=== PATIENT | male | born 1960 | race Caucasian/White ===

== ENCOUNTER 2019-05-01 16:52 | Inpatient (IN) | payer OTHER, MEDICAID ==
[~2019-05-01] VITALS: Ht 188 cm; Wt 86.4 kg
[2019-05-01] MEDS ORDERED: ZOLPIDEM TARTRATE 10 MG TABLET PO PRN (20:00)
[2019-05-01] MEDS ORDERED: HALOPERIDOL 5 MG TABLET PO PRN (20:00)
[2019-05-01] MEDS ORDERED: LORazepam 2 MG TABLET PO PRN (20:00)
[2019-05-01 20:33] VITALS: BP 126/75
[2019-05-01] MEDS ORDERED: ATORVASTATIN CALCIUM 20 MG TABLET PO SCH (21:00)
[2019-05-01] MEDS ORDERED: INFLUENZA VIRUS VACCINE QVS 2019-20 (3YR+)/PF 60 MCG/0.5 ML SYRINGE IM ONE (23:45)
[2019-05-02 06:41] LABS: BASOPHILS % (AUTO) 0.6 % (0.0-2.0); EOSINOPHILS % (AUTO) 4.9 % (1.0-6.0); HEMATOCRIT 44.3 % (41-53); HEMOGLOBIN 14.7 g/dL (13.5-17.5); LYMPHOCYTES % (AUTO) 39.2 % (22.0-44.0); MEAN CORPUSCULAR HEMOGLOBIN 29.1 pg (26.0-34.0); MEAN CORPUSCULAR HGB CONC 33.3 G/dL (31.0-37.0); MEAN CORPUSCULAR VOLUME 87 fL (80-100); MONOCYTES # (AUTO) 0.4 K/uL (0.1-1.0); MONOCYTES % (AUTO) 7.8 % (2.0-9.0); NEUTROPHILS # (AUTO) 2.4 K/uL (1.8-7.7); NEUTROPHILS % (AUTO) 47.5 % (40.0-70.0); PLATELET COUNT (AUTO) 169 K/uL (150-450); RED BLOOD CELL COUNT(AUTO) 5.07 MIL/uL (4.50-5.90); RED CELL DISTRIBUTION WIDTH 14.4 % (11.5-14.5)
[2019-05-02 07:00] LABS: ALANINE AMINOTRANSFERASE 11 U/L (12-78); ALBUMIN 3.5 g/dL (3.4-5.0); ALKALINE PHOSPHATASE 90 U/L (46-116); ANION GAP 6 mmol/L (8-16); ASPARTATE AMINOTRANSFERASE 10 U/L (15-37); BILIRUBIN,TOTAL 0.5 mg/dL (0.1-1.0); CARBON DIOXIDE 30 mmol/L (22-29); CHLORIDE 102 mmol/L (98-107); CHOL/HDL RATIO 4.8 (4.2-7.3); CHOLESTEROL 168 mg/dL (131-200); CREATININE 0.97 mg/dL (0.60-1.30); GLOMERULAR FILTR. RATE CALC > 60 mL/min (>60); GLUCOSE,RANDOM 86 mg/dL (70-110); HDL CHOLESTEROL 35 mg/dL (40-60); LDL CHOL (CALC.) 113 mg/dL (0-130); POTASSIUM 4.4 mmol/L (3.5-5.1); SODIUM SERUM 138 mmol/L (136-145); TOTAL PROTEIN, SERUM 7.4 g/dL (6.4-8.2); TRIGLYCERIDES 102 mg/dL (15-150); UREA NITROGEN, BLOOD 30 mg/dL (7-18)
[2019-05-02 07:04] LABS: HEMOGLOBIN A1C 4.9 % (4.5-6.2)
[2019-05-02 07:40] LABS: AMPHET/METH SCREEN,URINE NEGATIVE (NEGATIVE); BARBITURATE SCREEN, URINE NEGATIVE (NEGATIVE); BENZODIAZEPINES SCREEN,URINE NEGATIVE (NEGATIVE); CANNABINOID SCREEN,URINE NEGATIVE (NEGATIVE); COCAINE SCREEN,URINE NEGATIVE (NEGATIVE); METHADONE SCREEN, URINE NEGATIVE (NEGATIVE); OPIATE SCREEN,URINE NEGATIVE (NEGATIVE)
[2019-05-02 07:47] LABS: APPEARANCE,URINE CLEAR (CLEAR); GLUCOSE, URINE (UA) NEGATIVE (NEGATIVE); KETONES,URINE NEGATIVE (NEGATIVE); LEUKOCYTE ESTERASE ,URINE NEGATIVE (NEGATIVE); NITRATE,URINE NEGATIVE (NEGATIVE); OCCULT BLOOD,URINE NEGATIVE (NEGATIVE); PH,URINE 5.5 (5.0-8.0); PROTEIN,URINE NEGATIVE (NEGATIVE)
[2019-05-02 07:48] LABS: PHENCYCLIDINE SCREEN,URINE NEGATIVE (NEGATIVE)
[2019-05-02 07:49] LABS: BILIRUBIN,URINE PRELIM. POSITIVE (NEGATIVE)
[2019-05-02 08:16] VITALS: BP 143/89
[2019-05-02] MEDS: ASPIRIN 81 MG EC TABLET PO SCH (09:17)
[2019-05-02] MEDS: FLUoxetine HCL 20 MG CAPSULE PO SCH (12:37)
[2019-05-02 17:12] VITALS: BP 122/91
[2019-05-02] MEDS: OLANZapine 10 MG TABLET PO SCH (21:11)
[2019-05-02] MEDS: ATORVASTATIN CALCIUM 20 MG TABLET PO SCH (21:12)
[2019-05-03 05:53] VITALS: BP 124/82
[2019-05-03 08:33] VITALS: BP 113/75
[2019-05-03] MEDS: ASPIRIN 81 MG EC TABLET PO SCH (08:36)
[2019-05-03] MEDS: FLUoxetine HCL 20 MG CAPSULE PO SCH (08:36)
[2019-05-03 17:34] VITALS: BP 115/68
[2019-05-03] MEDS: OLANZapine 10 MG TABLET PO SCH (20:42)
[2019-05-03] MEDS: ATORVASTATIN CALCIUM 20 MG TABLET PO SCH (20:42)
== END 2019-05-03 21:10 | disposition short-term general hospital (02) | DRG 885 ==
LOC: EMS 16:55 → 3EX 18:46
PROC: 3E0234Z Introduction of Serum, Toxoid and Vaccine into Muscle, Percutaneous Approach (ICD-10-PCS; principal; 2019-05-01)
DX: F31.4 Bipolar disorder, current episode depressed, severe, without psychotic features (principal); R45.851 Suicidal ideations; E78.5 Hyperlipidemia, unspecified; F10.10 Alcohol abuse, uncomplicated; Y90.9 Presence of alcohol in blood, level not specified; F14.90 Cocaine use, unspecified, uncomplicated; G89.29 Other chronic pain; M54.9 Dorsalgia, unspecified; I11.0 Hypertensive heart disease with heart failure; I50.9 Heart failure, unspecified; Z59.0 Homelessness; Z86.73 Personal history of transient ischemic attack (TIA), and cerebral infarction without residual deficits; Z87.891 Personal history of nicotine dependence; Z91.5 Personal history of self-harm; Z98.1 Arthrodesis status; Z23 Encounter for immunization
CPT/HCPCS: 83036; 87081; G0378

== ENCOUNTER 2019-07-22 11:50 | Inpatient (IN) | payer OTHER, MEDICAID ==
[~2019-07-22] VITALS: Ht 185.4 cm; Wt 93.2 kg
[2019-07-22 15:25] LABS: ANION GAP 11 mmol/L (8-16); BASOPHILS % (AUTO) 0.7 % (0.0-2.0); CALCIUM, TOTAL 9.7 mg/dL (8.8-10.5); CARBON DIOXIDE 28 mmol/L (22-29); CHLORIDE 100 mmol/L (98-107); CREATININE 1.21 mg/dL (0.60-1.30); EOSINOPHILS % (AUTO) 1.3 % (1.0-6.0); GLOMERULAR FILTR. RATE CALC > 60 mL/min (>60); GLUCOSE,RANDOM 89 mg/dL (70-110); HEMATOCRIT 45.9 % (41-53); HEMOGLOBIN 15.4 g/dL (13.5-17.5); LYMPHOCYTES # (AUTO) 1.9 K/uL (1.0-4.8); LYMPHOCYTES % (AUTO) 19.7 % (22.0-44.0); MEAN CORPUSCULAR HEMOGLOBIN 29.9 pg (26.0-34.0); MEAN CORPUSCULAR HGB CONC 33.6 G/dL (31.0-37.0); MEAN CORPUSCULAR VOLUME 89 fL (80-100); MONOCYTES # (AUTO) 0.6 K/uL (0.1-1.0); MONOCYTES % (AUTO) 6.5 % (2.0-9.0); NEUTROPHILS % (AUTO) 71.8 % (40.0-70.0); PLATELET COUNT (AUTO) 271 K/uL (150-450); POTASSIUM 3.9 mmol/L (3.5-5.1); RED BLOOD CELL COUNT(AUTO) 5.17 MIL/uL (4.50-5.90); RED CELL DISTRIBUTION WIDTH 14.5 % (11.5-14.5); SODIUM SERUM 139 mmol/L (136-145); UREA NITROGEN, BLOOD 27 mg/dL (7-18)
[2019-07-22 15:33] LABS: ALANINE AMINOTRANSFERASE 16 U/L (12-78); ALBUMIN 4.5 g/dL (3.4-5.0); ALKALINE PHOSPHATASE 130 U/L (46-116); ASPARTATE AMINOTRANSFERASE 15 U/L (15-37); BILIRUBIN,TOTAL 0.6 mg/dL (0.1-1.0); TOTAL PROTEIN, SERUM 8.8 g/dL (6.4-8.2)
[2019-07-22 16:02] LABS: AMPHET/METH SCREEN,URINE NEGATIVE (NEGATIVE); BARBITURATE SCREEN, URINE NEGATIVE (NEGATIVE); BENZODIAZEPINES SCREEN,URINE NEGATIVE (NEGATIVE); CANNABINOID SCREEN,URINE NEGATIVE (NEGATIVE); COCAINE SCREEN,URINE NEGATIVE (NEGATIVE); METHADONE SCREEN, URINE NEGATIVE (NEGATIVE); OPIATE SCREEN,URINE NEGATIVE (NEGATIVE)
[2019-07-22 16:03] LABS: PHENCYCLIDINE SCREEN,URINE NEGATIVE (NEGATIVE)
[2019-07-22] MEDS ORDERED: HALOPERIDOL 5 MG TABLET PO PRN (17:30)
[2019-07-22] MEDS ORDERED: GuaiFENesin/D-METHORPHAN [SUGAR-FREE] 200-20MG/10 ML SYRUP UDCUP PO PRN (19:00)
[2019-07-22] MEDS ORDERED: ACETAMINOPHEN 325 MG TABLET PO PRN (19:00)
[2019-07-22] MEDS ORDERED: PETROLATUM,WHITE 28 GM JELLY TP PRN (19:00)
[2019-07-22] MEDS ORDERED: ONDANSETRON HCL 4 MG TABLET PO PRN (19:00)
[2019-07-22] MEDS ORDERED: ALBUTEROL SULFATE HFA 90 MCG/PUFF 8 GM INHALER IH PRN (19:00)
[2019-07-22] MEDS ORDERED: DOCUSATE SODIUM 100 MG CAPSULE PO PRN (19:00)
[2019-07-22] MEDS ORDERED: MAG HYDROX/AL HYDROX/SIMETH ES 30 ML SUSPENSION UDCUP PO PRN (19:00)
[2019-07-22] MEDS ORDERED: MAGNESIUM HYDROXIDE SUSPENSION 30 ML UDCUP PO PRN (19:00)
[2019-07-22] MEDS ORDERED: CloNIDine HCL 0.1 MG TABLET PO PRN (19:00)
[2019-07-22] MEDS ORDERED: IBUPROFEN 400 MG TABLET PO PRN (19:00)
[2019-07-22] MEDS ORDERED: LOPERAMIDE HCL 2 MG CAPSULE PO PRN (19:00)
[2019-07-22] MEDS ORDERED: NICOTINE 14 MG/24 HOUR PATCH TD PRN (19:00)
[2019-07-22 19:04] VITALS: BP 105/73
[2019-07-22] MEDS: LORazepam 2 MG TABLET PO PRN (20:10)
[2019-07-22] MEDS: ZOLPIDEM TARTRATE 10 MG TABLET PO PRN (22:03)
[2019-07-23] MEDS: LORazepam 2 MG TABLET PO PRN (00:14)
[2019-07-23 02:42] VITALS: BP 109/75
[2019-07-23 08:24] LABS: FREE T4 (FREE THYROXINE) 1.16 ng/dL (0.76-1.46); THYROID STIMULATING HORMONE 2.92 uIU/mL (0.36-3.74)
[2019-07-23] MEDS: OLANZapine 10 MG TABLET PO SCH ×2 (11:30→17:09)
[2019-07-23] MEDS: VENLAFAXINE HCL 150 MG ER CAPSULE PO SCH (11:30)
[2019-07-23 16:01] VITALS: BP 136/85
[2019-07-23] MEDS: TraZODone HCL 50 MG TABLET PO SCH (20:40)
[2019-07-24 08:33] VITALS: BP 114/74
[2019-07-24] MEDS: VENLAFAXINE HCL 150 MG ER CAPSULE PO SCH (09:34)
[2019-07-24] MEDS: OLANZapine 10 MG TABLET PO SCH ×2 (09:34→16:20)
[2019-07-24 16:13] VITALS: BP 101/61
[2019-07-24] MEDS: TraZODone HCL 50 MG TABLET PO SCH (21:00)
[2019-07-25] MEDS: VENLAFAXINE HCL 150 MG ER CAPSULE PO SCH (10:27)
[2019-07-25] MEDS: OLANZapine 10 MG TABLET PO SCH ×2 (10:27→16:16)
[2019-07-25 16:42] VITALS: BP 105/77
[2019-07-25] MEDS: TraZODone HCL 50 MG TABLET PO SCH (20:13)
[2019-07-26 08:21] VITALS: BP 105/77
[2019-07-26] MEDS: VENLAFAXINE HCL 150 MG ER CAPSULE PO SCH (10:30)
[2019-07-26] MEDS: OLANZapine 10 MG TABLET PO SCH ×2 (10:30→16:34)
[2019-07-26 18:03] VITALS: BP 111/69
[2019-07-26] MEDS: TraZODone HCL 50 MG TABLET PO SCH (20:12)
[2019-07-27 08:29] VITALS: BP 153/106
[2019-07-27] MEDS: OLANZapine 10 MG TABLET PO SCH ×2 (09:10→17:20)
[2019-07-27] MEDS: VENLAFAXINE HCL 150 MG ER CAPSULE PO SCH (09:10)
[2019-07-27 16:52] VITALS: BP 104/67
[2019-07-27] MEDS: TraZODone HCL 50 MG TABLET PO SCH (20:41)
[2019-07-28] MEDS: OLANZapine 10 MG TABLET PO SCH ×2 (08:04→16:25)
[2019-07-28] MEDS: VENLAFAXINE HCL 150 MG ER CAPSULE PO SCH (08:04)
[2019-07-28 08:07] VITALS: BP 130/74
[2019-07-28 16:14] VITALS: BP 99/62
[2019-07-28] MEDS: TraZODone HCL 50 MG TABLET PO SCH (20:28)
[2019-07-29] MEDS: VENLAFAXINE HCL 150 MG ER CAPSULE PO SCH (08:24)
[2019-07-29] MEDS: OLANZapine 10 MG TABLET PO SCH ×2 (08:26→16:32)
[2019-07-29 08:40] VITALS: BP 135/69
[2019-07-29 16:07] VITALS: BP 105/66
[2019-07-29] MEDS: TraZODone HCL 50 MG TABLET PO SCH ×2 (19:39→20:32)
[2019-07-30] MEDS: OLANZapine 10 MG TABLET PO SCH ×2 (08:20→16:32)
[2019-07-30] MEDS: VENLAFAXINE HCL 150 MG ER CAPSULE PO SCH (08:20)
[2019-07-30 09:14] VITALS: BP 117/74
[2019-07-30] MEDS: BuPROPion HCL XL 150 MG ER TABLET PO SCH (13:23)
[2019-07-30 16:05] VITALS: BP 101/62
[2019-07-30] MEDS: TraZODone HCL 50 MG TABLET PO SCH (20:39)
[2019-07-31] MEDS: BuPROPion HCL XL 150 MG ER TABLET PO SCH (09:21)
[2019-07-31] MEDS: OLANZapine 10 MG TABLET PO SCH ×2 (09:21→15:59)
[2019-07-31] MEDS: VENLAFAXINE HCL 150 MG ER CAPSULE PO SCH (09:21)
[2019-07-31 11:31] VITALS: BP 137/72
[2019-07-31 16:00] VITALS: BP 109/74
[2019-07-31] MEDS: TraZODone HCL 50 MG TABLET PO SCH (19:57)
[2019-07-31 20:44] VITALS: BP 112/69
[2019-07-31] MEDS: ZOLPIDEM TARTRATE 10 MG TABLET PO PRN (20:44)
[2019-07-31] MEDS: LORazepam 2 MG TABLET PO PRN (23:58)
[2019-08-01 00:28] VITALS: BP 122/76
[2019-08-01] MEDS: BuPROPion HCL XL 150 MG ER TABLET PO SCH (07:40)
[2019-08-01] MEDS: VENLAFAXINE HCL 150 MG ER CAPSULE PO SCH (07:40)
[2019-08-01] MEDS: OLANZapine 10 MG TABLET PO SCH ×2 (07:40→16:37)
[2019-08-01 08:55] VITALS: BP 134/96
[2019-08-01 16:03] VITALS: BP 112/62
[2019-08-01] MEDS: TraZODone HCL 50 MG TABLET PO SCH (20:40)
[2019-08-02] MEDS: OLANZapine 10 MG TABLET PO SCH ×2 (08:53→16:46)
[2019-08-02] MEDS: BuPROPion HCL XL 150 MG ER TABLET PO SCH (08:53)
[2019-08-02] MEDS: VENLAFAXINE HCL 150 MG ER CAPSULE PO SCH (08:53)
[2019-08-02 13:30] VITALS: BP 114/69
[2019-08-02 17:57] VITALS: BP 104/62
[2019-08-02] MEDS: TraZODone HCL 50 MG TABLET PO SCH (20:29)
[2019-08-03] MEDS: BuPROPion HCL XL 150 MG ER TABLET PO SCH (09:33)
[2019-08-03] MEDS: VENLAFAXINE HCL 150 MG ER CAPSULE PO SCH (09:33)
[2019-08-03] MEDS: OLANZapine 10 MG TABLET PO SCH ×2 (09:34→16:20)
[2019-08-03 09:37] VITALS: BP 127/71
[2019-08-03] MEDS: CARBAMIDE PEROXIDE 6.5% 15 ML OTIC SOLUTION AD SCH ×2 (10:31→16:21)
[2019-08-03 16:19] VITALS: BP 105/69
[2019-08-03] MEDS: TraZODone HCL 50 MG TABLET PO SCH (20:29)
[2019-08-03] MEDS: ZOLPIDEM TARTRATE 10 MG TABLET PO PRN (21:25)
[2019-08-04] MEDS: BuPROPion HCL XL 150 MG ER TABLET PO SCH (08:16)
[2019-08-04] MEDS: OLANZapine 10 MG TABLET PO SCH ×2 (08:16→16:18)
[2019-08-04] MEDS: VENLAFAXINE HCL 150 MG ER CAPSULE PO SCH (08:16)
[2019-08-04] MEDS: CARBAMIDE PEROXIDE 6.5% 15 ML OTIC SOLUTION AD SCH ×2 (08:17→16:18)
[2019-08-04 08:22] VITALS: BP 134/78
[2019-08-04 16:30] VITALS: BP 117/75
[2019-08-04] MEDS: TraZODone HCL 50 MG TABLET PO SCH (20:13)
[2019-08-05 08:12] VITALS: BP 123/71
[2019-08-05] MEDS: OLANZapine 10 MG TABLET PO SCH ×2 (09:05→16:22)
[2019-08-05] MEDS: VENLAFAXINE HCL 150 MG ER CAPSULE PO SCH (09:06)
[2019-08-05] MEDS: BuPROPion HCL XL 150 MG ER TABLET PO SCH (09:06)
[2019-08-05] MEDS: CARBAMIDE PEROXIDE 6.5% 15 ML OTIC SOLUTION AD SCH ×2 (09:06→16:22)
[2019-08-05 16:50] VITALS: BP 105/69
[2019-08-05] MEDS: TraZODone HCL 50 MG TABLET PO SCH (20:14)
[2019-08-06] MEDS: OLANZapine 10 MG TABLET PO SCH ×2 (08:52→16:36)
[2019-08-06] MEDS: BuPROPion HCL XL 150 MG ER TABLET PO SCH (08:52)
[2019-08-06] MEDS: VENLAFAXINE HCL 150 MG ER CAPSULE PO SCH (08:53)
[2019-08-06] MEDS: CARBAMIDE PEROXIDE 6.5% 15 ML OTIC SOLUTION AD SCH ×2 (08:53→16:37)
[2019-08-06 11:40] VITALS: BP 109/76
[2019-08-06 16:15] VITALS: BP 101/64
[2019-08-06] MEDS: TraZODone HCL 50 MG TABLET PO SCH (20:22)
[2019-08-07] MEDS: VENLAFAXINE HCL 150 MG ER CAPSULE PO SCH (08:08)
[2019-08-07] MEDS: CARBAMIDE PEROXIDE 6.5% 15 ML OTIC SOLUTION AD SCH (08:08)
[2019-08-07] MEDS: BuPROPion HCL XL 150 MG ER TABLET PO SCH (08:09)
[2019-08-07] MEDS: OLANZapine 10 MG TABLET PO SCH (08:09)
[2019-08-07 08:19] VITALS: BP 133/89
[2019-08-07] MEDS ORDERED: OLAN10TA3 PO (11:24)
[2019-08-07] MEDS ORDERED: BUPR-93 PO (11:24)
[2019-08-07] MEDS ORDERED: TRAZ-252 PO (11:25)
[2019-08-07] MEDS ORDERED: VENL-68 PO (11:25)
[2019-08-07] MEDS ORDERED: CARB-188 AU (11:37)
== END 2019-08-07 12:45 | disposition home or self-care (01) | DRG 885 ==
LOC: EMS 11:51 → 3EI 17:53 → 3EC 07-24 11:07
PROVIDERS: ADMIT Psychiatry & Neurology Psychiatry; ATTEND Psychiatry & Neurology Psychiatry
DX: F33.2 Major depressive disorder, recurrent severe without psychotic features (principal); F10.231 Alcohol dependence with withdrawal delirium; R45.851 Suicidal ideations; F17.210 Nicotine dependence, cigarettes, uncomplicated; I50.9 Heart failure, unspecified; F22 Delusional disorders; I11.0 Hypertensive heart disease with heart failure; K59.00 Constipation, unspecified; F14.90 Cocaine use, unspecified, uncomplicated; M47.9 Spondylosis, unspecified; L30.9 Dermatitis, unspecified; G89.29 Other chronic pain; M54.9 Dorsalgia, unspecified; M19.90 Unspecified osteoarthritis, unspecified site; Z86.73 Personal history of transient ischemic attack (TIA), and cerebral infarction without residual deficits; Z91.14 Patient's other noncompliance with medication regimen
CPT/HCPCS: 84439; 84443; 87081; G0480

== ENCOUNTER 2019-08-13 11:53 | Emergency (ER) | payer MEDICARE, MEDICAID ==
[~2019-08-13] VITALS: Ht 185.4 cm; Wt 90.5 kg
[~2019-08-13 11:53] MED LIST: BUPR-93 PO; OLAN10TA3 PO; TRAZ-252 PO; VENL-68 PO
[2019-08-13 13:30] LABS: BASOPHILS % (AUTO) 1.2 % (0.0-2.0); EOSINOPHILS % (AUTO) 0.5 % (1.0-6.0); HEMATOCRIT 45.1 % (41-53); HEMOGLOBIN 14.9 g/dL (13.5-17.5); LYMPHOCYTES # (AUTO) 1.8 K/uL (1.0-4.8); LYMPHOCYTES % (AUTO) 21.6 % (22.0-44.0); MEAN CORPUSCULAR HEMOGLOBIN 29.5 pg (26.0-34.0); MEAN CORPUSCULAR HGB CONC 33.2 G/dL (31.0-37.0); MEAN CORPUSCULAR VOLUME 89 fL (80-100); MONOCYTES # (AUTO) 0.4 K/uL (0.1-1.0); MONOCYTES % (AUTO) 4.8 % (2.0-9.0); NEUTROPHILS # (AUTO) 5.8 K/uL (1.8-7.7); NEUTROPHILS % (AUTO) 71.9 % (40.0-70.0); PLATELET COUNT (AUTO) 263 K/uL (150-450); RED BLOOD CELL COUNT(AUTO) 5.06 MIL/uL (4.50-5.90); RED CELL DISTRIBUTION WIDTH 14.2 % (11.5-14.5)
[2019-08-13 13:42] LABS: ANION GAP 11 mmol/L (8-16); CALCIUM, TOTAL 9.5 mg/dL (8.8-10.5); CARBON DIOXIDE 25 mmol/L (22-29); CHLORIDE 101 mmol/L (98-107); CREATININE 1.09 mg/dL (0.60-1.30); GLOMERULAR FILTR. RATE CALC > 60 mL/min (>60); GLUCOSE,RANDOM 142 mg/dL (70-110); POTASSIUM 3.8 mmol/L (3.5-5.1); SODIUM SERUM 137 mmol/L (136-145); UREA NITROGEN, BLOOD 29 mg/dL (7-18)
[2019-08-13 13:47] LABS: ALANINE AMINOTRANSFERASE 21 U/L (12-78); ALBUMIN 4.3 g/dL (3.4-5.0); ALKALINE PHOSPHATASE 108 U/L (46-116); ASPARTATE AMINOTRANSFERASE 13 U/L (15-37); BILIRUBIN,TOTAL 0.5 mg/dL (0.1-1.0); TOTAL PROTEIN, SERUM 8.4 g/dL (6.4-8.2)
[2019-08-13 13:48] LABS: AMPHET/METH SCREEN,URINE NEGATIVE (NEGATIVE); BARBITURATE SCREEN, URINE NEGATIVE (NEGATIVE); BENZODIAZEPINES SCREEN,URINE NEGATIVE (NEGATIVE); CANNABINOID SCREEN,URINE NEGATIVE (NEGATIVE); COCAINE SCREEN,URINE NEGATIVE (NEGATIVE); METHADONE SCREEN, URINE NEGATIVE (NEGATIVE); OPIATE SCREEN,URINE NEGATIVE (NEGATIVE); PHENCYCLIDINE SCREEN,URINE NEGATIVE (NEGATIVE)
[2019-08-13] MEDS ORDERED: BuPROPion HCL XL 150 MG ER TABLET PO ONE (14:15)
[2019-08-13] MEDS ORDERED: OLANZapine 5 MG TABLET PO ONE (14:15)
[2019-08-13] MEDS ORDERED: VENLAFAXINE HCL 150 MG ER CAPSULE PO ONE (14:15)
[2019-08-13 14:30] VITALS: BP 141/97
== END 2019-08-13 14:41 | disposition home or self-care (01) ==
LOC: EMS 11:56
DX: F32.9 Major depressive disorder, single episode, unspecified (principal); I11.0 Hypertensive heart disease with heart failure; I50.9 Heart failure, unspecified; F17.210 Nicotine dependence, cigarettes, uncomplicated; F11.90 Opioid use, unspecified, uncomplicated; Z79.899 Other long term (current) drug therapy; Z98.890 Other specified postprocedural states; Z86.73 Personal history of transient ischemic attack (TIA), and cerebral infarction without residual deficits
CPT/HCPCS: 36415; 80053; 80307; 85025; 99284; G0480

== ENCOUNTER 2019-08-14 11:56 | Emergency (ER) | payer MEDICARE, MEDICAID ==
[~2019-08-14] VITALS: Ht 182.9 cm; Wt 77.3 kg
[2019-08-14 16:18] VITALS: BP 112/67
== END 2019-08-14 16:53 | disposition home or self-care (01) ==
LOC: EMS 11:59
DX: F32.9 Major depressive disorder, single episode, unspecified (principal); I11.0 Hypertensive heart disease with heart failure; I50.9 Heart failure, unspecified; F17.210 Nicotine dependence, cigarettes, uncomplicated; F14.90 Cocaine use, unspecified, uncomplicated